=== PATIENT | male | born 1960 | race Caucasian/White ===

== ENCOUNTER → 2018-03-30 | Outpatient (CLI) | payer BC ==
--- NOTE | 2018-03-30 09:35 | RAD ---
Examination: THYROID ULTRASOUND History: Weight gain, fatigue Comparison/Correlation: None Findings: Thyroid ultrasound exam was performed. Right thyroid lobe measures 4.2 cm x 1.17 x 1.1 cm. Left thyroid lobe measures 4.3 cm x 1.5 cm x 1.2 cm. A hyperechoic nodule at the right renal superior pole measuring 0.7 cm x 0.6 cm x 0.4 cm is present. At the left inferior pole medially, there is a hypoechoic nodule measuring 0.8 cm by 0.8 cm x 0.7 cm. No significant flow suggested involving the nodules. Normal right thyroid lobe flow is evident. Decreased flow involving the left thyroid lobe as compared to the right thyroid lobe is seen. Echotexture of the thyroid gland is unremarkable bilaterally. Thyroid isthmus is unremarkable. Impression: Left thyroid lower pole hypoechoic nodule. TI-RADS score of 4. Interval follow-up in 8 months to one year recommended to assess stability. Electronically signed by: Torrey King MD (03/30/2018 9:30 AM) [facility]
== END | disposition home or self-care (01) ==
LOC: US 08:05
PROVIDERS: ATTEND Nurse Practitioner Family
DX: E04.1 Nontoxic single thyroid nodule (principal); E03.9 Hypothyroidism, unspecified
CPT/HCPCS: 76536

== ENCOUNTER → 2019-05-06 | Outpatient (CLI) | payer BC ==
--- NOTE | 2019-05-06 12:51 | RAD ---
Thyroid ultrasound 03/30/2018 CLINICAL HISTORY: History of thyroid nodule. TECHNIQUE: A real-time ultrasound examination of the thyroid gland was performed. Multiple images were obtained. FINDINGS: Comparison study is dated 03/30/2018. The thyroid gland is normal in size. The right lobe of thyroid gland measures 4.2 x 2.0 x 1.6 cm in longitudinal, transverse, and AP dimensions. The left lobe of thyroid gland measures 4.0 x 1.4 x 1.6 cm in size. Within the superior aspect of the right lobe of the thyroid gland a hyperechoic nodule is seen which measures 7 mm in greatest diameter. This is unchanged. Within the inferior medial aspect of the left lobe of thyroid gland a 8mm hypoechoic nodule is seen. This is unchanged. No additional significant nodule is seen involving the thyroid gland. IMPRESSION: Stable sonographic appearance of the small nodules involving the thyroid gland as discussed above. Electronically signed by: Dario Almodovar MD (05/06/2019 12:48 PM) [facility] [place]
== END | disposition home or self-care (01) ==
LOC: US 10:02
PROVIDERS: ATTEND Family Medicine
DX: E04.2 Nontoxic multinodular goiter (principal); R94.6 Abnormal results of thyroid function studies; E03.9 Hypothyroidism, unspecified
CPT/HCPCS: 76536